=== PATIENT | female | born 1965 | race Caucasian/White ===

== ENCOUNTER 2018-08-29 09:03 | Emergency (ER) | payer MEDICAID ==
[~2018-08-29] VITALS: Ht 167.6 cm; Wt 68.0 kg
[2018-08-29 10:30] VITALS: BP 149/86
== END 2018-08-29 10:38 | disposition home or self-care (01) ==
LOC: ER 09:52
DX: S63.591A Other specified sprain of right wrist, initial encounter (principal); R04.0 Epistaxis; V43.52XA Car driver injured in collision with other type car in traffic accident, initial encounter; Y93.89 Activity, other specified; Y92.411 Interstate highway as the place of occurrence of the external cause
CPT/HCPCS: 99283